=== PATIENT | female | born 1980 | race Caucasian/White ===

== ENCOUNTER 2017-03-30 05:16 | Emergency (ER) | payer MEDICARE ==
[~2017-03-30] VITALS: Ht 170.2 cm; Wt 54.4 kg
[2017-03-30] MEDS ORDERED: SODIUM CHLORIDE 0.9% 1000ML 1,000 ML IV ONE ×2 (05:30)
[2017-03-30] MEDS ORDERED: ONDANSETRON HCL INJ 2 MG/ML VIAL IV STA ×3 (05:30→10:23)
[2017-03-30 06:11] LABS: BASOPHILS # (AUTO) 0.1 (0.0-0.1); BASOPHILS % 0.4 % (0.0-1.0); EOSINOPHILS # (AUTO) 0.1 (0.0-0.4); EOSINOPHILS % 0.6 % (0.0-6.0); HEMATOCRIT 37.8 % (34.2-44.1); LYMPHOCYTES # (AUTO) 0.7 (1.0-3.2); LYMPHOCYTES % 4.7 % (18.0-39.1); MEAN CORPUSCULAR HEMOGLOBIN 27.2 pg (28-32); MEAN CORPUSCULAR HGB CONC 31.7 g/dL (31-35); MEAN CORPUSCULAR VOLUME 85.7 fL (81-99); MONOCYTES # (AUTO) 0.5 (0.2-0.8); MONOCYTES % 3.8 % (4.4-11.3); NEUTROPHILS # (AUTO) 12.7 (2.1-6.9); NEUTROPHILS % 89.6 % (38.7-80.0); PLATELET COUNT 368 x10e3/uL (140-360); RED BLOOD COUNT 4.41 x10e6/uL (3.6-5.1)
[2017-03-30] MEDS ORDERED: PROMETHAZINE HCL (IM) 25 MG/ML VIAL IM ONE (06:15)
[2017-03-30] MEDS ORDERED: PROMETHAZINE HCL (IM) 25 MG/ML VIAL ONE (06:26)
[2017-03-30 06:27] LABS: ALANINE AMINOTRANSFERASE 116 IU/L (0-55); ALBUMIN 2.6 g/dL (3.5-5.0); ALBUMIN/GLOBULIN RATIO 0.8 (0.8-2.0); ALKALINE PHOSPHATASE 196 IU/L (40-150); AMYLASE 41 U/L (25-125); ANION GAP 18.3 mmol/L (8-16); BLOOD UREA NITROGEN 10 mg/dL (7-26); BUN/CREATININE RATIO 11 (6-25); CALCIUM 8.1 mg/dL (8.4-10.2); CARBON DIOXIDE 16 mmol/L (22-29); CHLORIDE 111 mmol/L (98-107); CREATINE KINASE 28 IU/L (29-168); EST GLOMERULAR FILTRATION RATE > 60 ML/MIN (60-); GLUCOSE 145 mg/dL (74-118); LIPASE 39 U/L (8-78); POTASSIUM 3.3 mmol/L (3.5-5.1); SODIUM 142 mmol/L (136-145)
[2017-03-30] MEDS ORDERED: DIATRIZOATE MEGL/DIATRIZOA SOD 30 ML BTL PO ONE (06:33)
[2017-03-30 06:34] LABS: TROPONIN I 0.015 ng/mL (0-0.300)
[2017-03-30] MEDS ORDERED: KETOROLAC TROMETHAMINE 30 MG/ML VIAL IV STA (07:14)
[2017-03-30] MEDS ORDERED: HYDROMORPHONE 1MG/1ML INJ IV STA ×2 (08:15→10:23)
--- NOTE | 2017-03-30 08:27 | Diagnostic Imaging Report ---
PROCEDURE:CT ABDOMEN AND PELVIS WITH CONTRAST COMPARISON:None. INDICATIONS:Nausea, vomiting, abdomen pain TECHNIQUE: Routine protocol Volumetric CT abdomen and pelvis after administration of 100 mL Isovue-370 intravenous contrast and 900 mL positive enteric contrast. Multiplanar reformatted images. DLP: 193.06 FINDINGS: Calcified right lower lobe granuloma. Clear lung bases. Normal heart size. Liver: Diffusely enlarged, with a span of 17.7 cm. Gallbladder: Cholecystectomy. Common bile duct diameter 1.1 cm. Pancreas: Normal Spleen: Normal, span 11 cm. Adrenal glands: Normal Urinary bladder: Normal Uterus and adnexa: Normal Right kidney: 2 mm right inferior pole nonobstructing stone. 8 mm superior pole cyst. Normal ureter. Left kidney: Mild hydronephrosis. 4 mm stone at the ureteropelvic junction (image 50, series 301). 2 cm simple inferior pole cyst. Bowel: Postsurgical changes at the gastroesophageal junction with a small sliding-type hiatal hernia. Postoperative sequela of gastric bypass. Decompressed colon. Peritoneum: Normal Vasculature: Normal caliber. Trace infrarenal aortic atherosclerosis. Lymph nodes: Normal Skeleton: Normal Soft tissues: Normal CONCLUSION: 1. 4 mm partially obstructing stone at the left ureteropelvic junction with resulting mild hydronephrosis. No CT evidence of pyelonephritis. 2. Nonobstructive 2 mm right nephrolithiasis. 3. Hepatomegaly. 4. Postoperative sequela of gastric bypass. Dictated by: Devin Noyola M.D. on 03/30/2017 at 8:35 Electronically approved by: Devin Noyola M.D. on 03/30/2017 at 8:35
[2017-03-30] MEDS ORDERED: HYDROMORPHONE 1MG/1ML INJ ONE (08:29)
[2017-03-30 08:47] LABS: BILIRUBIN,URINE 1+ (NEGATIVE); KETONES,URINE 1+ (NEGATIVE); LEUKOCYTE ESTERASE ,URINE 1+ (NEGATIVE); PREGNANCY TEST, URINE NEGATIVE (NEGATIVE); URINE UROBILINOGEN 1 mg/dL (0.2 - 1)
[2017-03-30 08:58] LABS: AMPHETAMINES SCREEN,URINE NEGATIVE (NEGATIVE); BENZODIAZEPINES SCREEN,URINE NEGATIVE (NEGATIVE); CANNABINOIDS SCREEN,URINE NEGATIVE (NEGATIVE); PHENCYCLIDINE SCREEN,URINE NEGATIVE (NEGATIVE)
[2017-03-30 09:20] LABS: CLARITY,URINE CLOUDY (CLEAR); COLOR,URINE YELLOW (YELLOW); NITRITE,URINE POSITIVE (NEGATIVE); PROTEIN,URINE DIPSTICK 1+ (NEGATIVE)
[2017-03-30 09:32] LABS: BACTERIA,URINE MANY /HPF; EPITHELIAL CELLS,URINE FEW /LPF
[2017-03-30] MEDS ORDERED: CEFTRIAXONE SOD 1 GM VIAL IV ONE (10:30)
== END 2017-03-30 12:44 | disposition home or self-care (01) ==
LOC: ER 05:16
DX: R11.2 Nausea with vomiting, unspecified (principal); R10.9 Unspecified abdominal pain; M32.9 Systemic lupus erythematosus, unspecified; L98.2 Febrile neutrophilic dermatosis [Sweet]
CPT/HCPCS: 36415; 74177; 80053; 80307; 81001; 81025; 82150; 82550; 82553; 83690; 84484; 85025; 87086; 87186; 87400; 93005; 99284; J1170; J1885; J2405; J2550; J7030